=== PATIENT | female | born 1945 | race Caucasian/White ===

== ENCOUNTER 2019-08-24 21:37 | Emergency (ER) | payer OTHER ==
[~2019-08-24] VITALS: Ht 157.5 cm; Wt 52.2 kg
[2019-08-25] MEDS ORDERED: MEDI-MECLIZINE25 MG PO (03:33)
== END 2019-08-25 03:37 ==
LOC: ER 21:37
DX: R42 Dizziness and giddiness (principal); R20.2 Paresthesia of skin